=== PATIENT | male | born 1980 | race Caucasian/White ===

== ENCOUNTER 2020-01-04 13:24 | Inpatient (IN) ==
[2020-01-04 13:53] LABS: ABS Lymphocytes 1.3 10^3/ul (1.0-4.8); ABS Monocytes 0.7 10^3/ul (0-0.8); ABS Neutrophils 9.4 10^3/ul (1.5-7.7); Eosinophil % 0.1 %; Hematocrit 49 % (42-52); Lymphocyte % 11.1 %; Mean Corpuscular HGB Conc 35 g/dL (31-36); Mean Corpuscular Hemoglobin 33 pg (27-31); Mean Corpuscular Volume 94 fL (80-94); Mean Platelet Volume 8.9 fL (7.4-10.4); Platelet Count 230 10^3/uL (150-450); Red Cell Distribution Width 14 % (10-15); White Blood Count 11.5 10^3/uL (3.5-10.8)
[2020-01-04 14:17] LABS: ALT 25 U/L (7-52); AST 22 U/L (13-39); Albumin 4.6 g/dL (3.2-5.2); Albumin/Globulin Ratio 2.1 (1-3); Alkaline Phosphatase 46 U/L (34-104); Anion Gap 10 mmol/L (2-11); BUN/Creatinine Ratio 18.9 (8-20); Blood Urea Nitrogen 18 mg/dL (6-24); CO2 Carbon Dioxide 22 mmol/L (22-32); Calcium 9.5 mg/dL (8.6-10.3); Chloride 108 mmol/L (101-111); EGFR African American 105.7 (>60); EGFR Non-African American 87.4 (>60); Globulin 2.2 g/dL (2-4); Glucose 115 mg/dL (70-100); Potassium 3.9 mmol/L (3.5-5.0); Sodium 140 mmol/L (135-145); Total Protein 6.8 g/dL (6.4-8.9)
[2020-01-04 14:30] LABS: Acetaminophen < 15 mcg/mL; Alcohol, S < 10 mg/dL (<10); Salicylate < 2.50 mg/dL (<30)
[2020-01-04] MEDS ORDERED: Ondansetron 4 mg VIAL 2 MG/ML 2 ml VIAL IM ONE (14:45)
[2020-01-04] MEDS ORDERED: Ondansetron 4 mg VIAL 2 MG/ML 2 ml VIAL IV ONE (14:45)
[2020-01-04 15:27] LABS: Urine Appearance Cloudy; Urine Bilirubin Negative (Negative); Urine Blood Negative (Negative); Urine Color Yellow; Urine Glucose Negative (Negative); Urine Ketones Trace (Negative); Urine Nitrite Negative (Negative); Urine Protein 1+(30 mg/dL) (Negative); Urine Specific Gravity 1.024 (1.010-1.030); Urine Urobilinogen Negative (Negative)
[2020-01-04 15:28] LABS: Urine Bacteria Absent (Absent); Urine Red Blood Cell Trace(0-2/hpf) (Absent); Urine Squamous Epithelial Cell Present (Absent); Urine White Blood Cell Trace(0-5/hpf) (Absent)
[2020-01-04 15:34] LABS: Urine Benzodiazepine Screen None Detected (None Detect); Urine Cannabinoids Screen None Detected (None Detect); Urine Opiates Screen None Detected (None Detect)
[2020-01-04] MEDS ORDERED: LORazepam 2 mg VIAL 1 ml IM ONE (22:08)
[2020-01-04] MEDS ORDERED: diPHENhydraMINE IV 50 MG/ML 1 ml VIAL (BENADRYL) IM ONE (22:09)
[2020-01-04] MEDS ORDERED: Lorazepam PYXIS KEY PRN (22:09)
[2020-01-04] MEDS ORDERED: Haloperidol 5 mg/ml SDV IV/IM 5 MG/ML AMP IM ONE (22:16)
[2020-01-05 10:16] LABS: ABS Lymphocytes 1.1 10^3/ul (1.0-4.8); ABS Monocytes 0.7 10^3/ul (0-0.8); Eosinophil % 0.2 %; Hematocrit 47 % (42-52); Hemoglobin 16.9 g/dL (14.0-18.0); Lymphocyte % 12.5 %; Mean Corpuscular HGB Conc 36 g/dL (31-36); Mean Corpuscular Hemoglobin 33 pg (27-31); Mean Corpuscular Volume 93 fL (80-94); Mean Platelet Volume 8.8 fL (7.4-10.4); Nucleated Red Blood Cells % 0.1; Platelet Count 207 10^3/uL (150-450); Red Blood Count 5.09 10^6 /uL (4.18-5.48); Red Cell Distribution Width 13 % (10-15); White Blood Count 8.9 10^3/uL (3.5-10.8)
[2020-01-05 10:36] LABS: BUN/Creatinine Ratio 18.3 (8-20); Calcium 9.6 mg/dL (8.6-10.3); EGFR African American 108.9 (>60); Potassium 3.9 mmol/L (3.5-5.0)
[2020-01-05] MEDS ORDERED: Polyethylene Glycol 3350 17 GM PACKET PO PRN (19:00)
[2020-01-05] MEDS ORDERED: Polyethylene Glycol 3350 17 GM PACKET PO ONE (19:00)
[2020-01-06] MEDS: Vitamin THERAPEUTIC TAB PO SCH (09:37)
[2020-01-06] MEDS ORDERED: Sodium Phosphate ADULT ENEMA 133 ML BTL PR ONE (19:20)
[2020-01-07 07:18] LABS: HDL Cholesterol 50.8 mg/dL
[2020-01-07] MEDS: Vitamin THERAPEUTIC TAB PO SCH (08:44)
[2020-01-08] MEDS: Vitamin THERAPEUTIC TAB PO SCH (10:48)
[2020-01-09] MEDS: Vitamin THERAPEUTIC TAB PO SCH (10:11)
[2020-01-10] MEDS: Vitamin THERAPEUTIC TAB PO SCH (09:55)
[2020-01-11] MEDS: Vitamin THERAPEUTIC TAB PO SCH (10:05)
[2020-01-12] MEDS: Vitamin THERAPEUTIC TAB PO SCH (10:57)
[2020-01-12] MEDS: Al Hydrox/Mg Hydrox/Simet LIQ 30 ML UDC PO PRN (23:11)
[2020-01-13] MEDS: Vitamin THERAPEUTIC TAB PO SCH (07:51)
[2020-01-13] MEDS ORDERED: Ondansetron ODT 4 mg TAB 4 MG TAB PO ONE (12:20)
[2020-01-13] MEDS ORDERED: Ondansetron ODT 4 mg TAB 4 MG TAB ONE (12:41)
[2020-01-13] MEDS: Al Hydrox/Mg Hydrox/Simet LIQ 30 ML UDC PO PRN (12:54)
[2020-01-14] MEDS: Vitamin THERAPEUTIC TAB PO SCH (08:38)
[2020-01-15] MEDS: Vitamin THERAPEUTIC TAB PO SCH (08:10)
[2020-01-15 08:26] VITALS: BP 104/74
== END 2020-01-15 12:15 | disposition home or self-care (01) | DRG 882 ==
LOC: EDBD → ED 13:24 → MERGE 01-05 13:52 → BSU 01-05 13:52
PROVIDERS: ADMIT Psychiatry & Neurology Psychiatry; ATTEND Psychiatry & Neurology Psychiatry